=== PATIENT | male | born 1995 | race African-American/Black ===

== ENCOUNTER 2023-03-04 10:27 | Emergency (ER) | payer OTHER ==
[~2023-03-04] VITALS: Ht 177.8 cm; Wt 66.8 kg
[2023-03-04] MEDS ORDERED: IBUP200C25 PO (10:47)
[2023-03-04 14:18] LABS: HEMATOCRIT 49.2 % (42.0-52.0); HEMOGLOBIN 16.4 g/dl (13.5-17.5); MEAN CORPUSCULAR HEMOGLOBIN 31.1 pg (27.0-33.0); MEAN CORPUSCULAR HGB CONC 33.3 g/dl (32.0-36.5); MEAN CORPUSCULAR VOLUME 93.4 fl (80.0-96.0); PLATELET COUNT, AUTOMATED 211 10^3/uL (150-450); RED BLOOD COUNT 5.27 10^6/uL (4.30-6.10); WHITE BLOOD COUNT 4.5 10^3/uL (4.0-10.0)
[2023-03-04 14:42] VITALS: BP 122/63
[2023-03-04 15:44] LABS: GC DNA AMPLIFICATION NEGATIVE (NEGATIVE)
== END 2023-03-04 15:58 | disposition home or self-care (01) ==
LOC: M ED 10:27
DX: R10.30 Lower abdominal pain, unspecified (principal); F17.200 Nicotine dependence, unspecified, uncomplicated

== ENCOUNTER 2023-05-03 22:40 | Inpatient (IN) | payer OTHER ==
[~2023-05-03 22:40] MED LIST: IBUP200C25 PO
[2023-05-03 23:15] LABS: HEMATOCRIT 43.9 % (42.0-52.0); HEMOGLOBIN 14.6 g/dl (13.5-17.5); MEAN CORPUSCULAR HEMOGLOBIN 30.7 pg (27.0-33.0); MEAN CORPUSCULAR HGB CONC 33.3 g/dl (32.0-36.5); MEAN CORPUSCULAR VOLUME 92.4 fl (80.0-96.0); RED BLOOD COUNT 4.75 10^6/uL (4.30-6.10); WHITE BLOOD COUNT 4.4 10^3/uL (4.0-10.0)
[2023-05-03 23:16] LABS: BASO % 0.5 % (0.0-1.0); EOS # 0.1 10^3/uL (0.0-0.5); EOS % 1.8 % (0.0-3.0); LYMPH # 1.9 10^3/uL (1.5-5.0); LYMPH % 42.9 % (24.0-44.0); MONO # 0.3 10^3/uL (0.0-0.8); MONO % 6.5 % (2.0-8.0); NEUTROPHILS # 2.1 10^3/uL (1.5-8.5); NEUTROPHILS % 48.3 % (36.0-66.0); PLATELET COUNT, AUTOMATED 221 10^3/uL (150-450)
[2023-05-03 23:39] LABS: ETHYL ALCOHOL (ETHANOL) < 0.003 % (0.000-0.010)
[2023-05-03 23:40] LABS: ACETAMINOPHEN LEVEL < 2.0 UG/ML (10.0-20.0); SALICYLATE LEVEL < 3.0 MG/DL (<30)
[2023-05-03 23:43] LABS: THYROID STIMULATING HORMONE 1.419 uIU/ML (0.55-4.78)
[2023-05-03 23:47] LABS: ALBUMIN 3.6 G/DL (3.2-5.2); ALKALINE PHOSPHATASE 47 U/L (46-116); ALT/SGPT 20 U/L (7.0-40); AST/SGOT 39 U/L (<34); BILIRUBIN,DIRECT 0.2 MG/DL (<0.4); BILIRUBIN,TOTAL 0.7 MG/DL (0.3-1.2); BLOOD UREA NITROGEN 13 MG/DL (9-23); CALCIUM LEVEL 7.8 MG/DL (8.5-10.1); CARBON DIOXIDE LEVEL 29 MMOL/L (20-31); CHLORIDE LEVEL 99 MMOL/L (98-107); CREATININE FOR GFR 0.98 MG/DL (0.70-1.30); GLOMERULAR FILTRATION RATE > 60.0 (>60); GLUCOSE, FASTING 334 MG/DL (60-100); POTASSIUM SERUM 4.8 MMOL/L (3.5-5.1); SODIUM LEVEL 134 MMOL/L (136-145)
[2023-05-04 00:01] LABS: AMPHETAMINES LEVEL URINE NEGATIVE (NEGATIVE); BARBITURATES URINE NEGATIVE (NEGATIVE); BENZODIAZEPINES URINE NEGATIVE (NEGATIVE); COCAINE METABOLITE URINE NEGATIVE (NEGATIVE); METHADONE URINE NEGATIVE (NEGATIVE); OPIATES URINE NEGATIVE (NEGATIVE)
[2023-05-04 00:02] LABS: PHENCYCLIDINE URINE NEGATIVE (NEGATIVE)
[2023-05-04 00:04] LABS: CANNABINOIDS URINE POSITIVE (NEGATIVE)
[2023-05-04 01:35] LABS: RSV AMPLIFICATION NEGATIVE (NEGATIVE)
[2023-05-04] MEDS ORDERED: ACETAMINOPHEN TAB 650MG DOSE (2X325MG) PO PRN (02:50)
[2023-05-04] MEDS ORDERED: LR 1,000 ML IV SCH (03:00)
[2023-05-04] MEDS ORDERED: HOME MED LIST COMPLETE! XX SCH (07:35)
[2023-05-04] MEDS: ENOXAPARIN 40MG/0.4ML SYRINGE (J1650 PER 10MG) SC SCH (09:00)
[2023-05-04] MEDS ORDERED: PROHANCE 279.3MG/ML 15ML VIAL As Ordered ONE (13:55)
[2023-05-04 13:58] LABS: ALBUMIN 3.7 G/DL (3.2-5.2); ALKALINE PHOSPHATASE 65 U/L (46-116); ALT/SGPT 16 U/L (7.0-40); AST/SGOT 13 U/L (<34); BILIRUBIN,TOTAL 0.9 MG/DL (0.3-1.2); BLOOD UREA NITROGEN 14 MG/DL (9-23); C REACTIVE PROTEIN QUANTITATIV < 0.40 MG/DL (<1.0); CALCIUM LEVEL 9.3 MG/DL (8.5-10.1); CARBON DIOXIDE LEVEL 28 MMOL/L (20-31); CHLORIDE LEVEL 106 MMOL/L (98-107); CREATININE FOR GFR 0.81 MG/DL (0.70-1.30); GLOMERULAR FILTRATION RATE > 60.0 (>60); GLUCOSE, FASTING 100 MG/DL (60-100); POTASSIUM SERUM 4.1 MMOL/L (3.5-5.1); SODIUM LEVEL 140 MMOL/L (136-145); TOTAL PROTEIN 6.1 G/DL (5.7-8.2)
[2023-05-04 15:47] LABS: AMORPHOUS SEDIMENT MODERATE (NEGATIVE); APPEARANCE, URINE CLOUDY (CLEAR); BACTERIA, URINE AUTO NEGATIVE (NEGATIVE); BILIRUBIN, URINE AUTO NEGATIVE (NEGATIVE); BLOOD, URINE BLOOD 2+ (NEGATIVE); COLOR, URINE YELLOW (YELLOW); GLUCOSE, URINE (UA) AUTO NEGATIVE (NEGATIVE); KETONE, URINE AUTO NEGATIVE (NEGATIVE); LEUKOCYTE ESTERASE, URINE AUTO NEGATIVE (NEGATIVE); NITRITE, URINE AUTO NEGATIVE (NEGATIVE); PROTEIN, URINE AUTO NEGATIVE (NEGATIVE); RBC, URINE AUTO 88 /HPF (0-3); SPECIFIC GRAVITY URINE AUTO 1.014 (1.002-1.035); SQUAMOUS EPITHELIAL CELL UR AU 0 /HPF (0-6); WBC, URINE AUTO 0 /HPF (0-3)
[2023-05-04 15:50] VITALS: BP 122/69; TEMP 98.1; O2SAT 100
[2023-05-04 20:46] VITALS: BP 116/69; TEMP 97.1; O2SAT 100
[2023-05-05 06:00] VITALS: BP 118/65; TEMP 97.6; O2SAT 100
[2023-05-05 06:00] LABS: BASO % 0.6 % (0.0-1.0); EOS # 0.1 10^3/uL (0.0-0.5); EOS % 2.4 % (0.0-3.0); HEMATOCRIT 46.2 % (42.0-52.0); HEMOGLOBIN 15.4 g/dl (13.5-17.5); LYMPH # 2.2 10^3/uL (1.5-5.0); LYMPH % 41.5 % (24.0-44.0); MEAN CORPUSCULAR HEMOGLOBIN 30.7 pg (27.0-33.0); MEAN CORPUSCULAR HGB CONC 33.3 g/dl (32.0-36.5); MEAN CORPUSCULAR VOLUME 92.2 fl (80.0-96.0); MONO # 0.5 10^3/uL (0.0-0.8); MONO % 9.3 % (2.0-8.0); NEUTROPHILS # 2.5 10^3/uL (1.5-8.5); PLATELET COUNT, AUTOMATED 243 10^3/uL (150-450); RED BLOOD COUNT 5.01 10^6/uL (4.30-6.10); WHITE BLOOD COUNT 5.4 10^3/uL (4.0-10.0)
[2023-05-05 06:24] LABS: ALBUMIN 4.1 G/DL (3.2-5.2); ALKALINE PHOSPHATASE 75 U/L (46-116); ALT/SGPT 14 U/L (7.0-40); AST/SGOT 12 U/L (<34); BILIRUBIN,TOTAL 0.5 MG/DL (0.3-1.2); BLOOD UREA NITROGEN 15 MG/DL (9-23); CALCIUM LEVEL 9.7 MG/DL (8.5-10.1); CARBON DIOXIDE LEVEL 30 MMOL/L (20-31); CHLORIDE LEVEL 103 MMOL/L (98-107); CREATININE FOR GFR 0.91 MG/DL (0.70-1.30); GLOMERULAR FILTRATION RATE > 60.0 (>60); GLUCOSE, FASTING 75 MG/DL (60-100); MAGNESIUM LEVEL 1.9 MG/DL (1.8-2.4); SODIUM LEVEL 139 MMOL/L (136-145); TOTAL PROTEIN 6.6 G/DL (5.7-8.2)
[2023-05-05] MEDS: ENOXAPARIN 40MG/0.4ML SYRINGE (J1650 PER 10MG) SC SCH (08:02)
[2023-05-05] MEDS ORDERED: ONDANSETRON 4MG 2ML VIAL IV PRN (09:55)
[2023-05-05] MEDS ORDERED: BISACODYL 10MG SUPP PR PRN (09:55)
[2023-05-05] MEDS: SENOKOT S TAB PO SCH ×2 (10:09→21:00)
[2023-05-05] MEDS ORDERED: OLANZapine INTRAMUSCULAR 10MG VIAL IM PRN (12:40)
[2023-05-05] MEDS ORDERED: GLUCOSE 4GM CHEW TABLET PO PRN (13:30)
[2023-05-05] MEDS ORDERED: DEXTROSE 50% 50ML SYRINGE IV PRN (13:30)
[2023-05-05] MEDS ORDERED: GLUCAGON INJ 1MG VIAL SC PRN (13:30)
[2023-05-05 14:00] VITALS: BP 116/66; TEMP 97.4; O2SAT 100
[2023-05-05 21:44] VITALS: BP 132/65; TEMP 97.2; O2SAT 100
[2023-05-06] MEDS: ENOXAPARIN 40MG/0.4ML SYRINGE (J1650 PER 10MG) SC SCH (09:00)
[2023-05-06] MEDS: SENOKOT S TAB PO SCH (09:00)
[2023-05-06 11:06] LABS: BASO % 0.7 % (0.0-1.0); EOS % 0.9 % (0.0-3.0); HEMATOCRIT 55.3 % (42.0-52.0); LYMPH # 1.8 10^3/uL (1.5-5.0); MEAN CORPUSCULAR HEMOGLOBIN 31.2 pg (27.0-33.0); MEAN CORPUSCULAR HGB CONC 33.6 g/dl (32.0-36.5); MEAN CORPUSCULAR VOLUME 92.6 fl (80.0-96.0); MONO # 0.3 10^3/uL (0.0-0.8); MONO % 5.4 % (2.0-8.0); NEUTROPHILS # 2.5 10^3/uL (1.5-8.5); NEUTROPHILS % 53.8 % (36.0-66.0); PLATELET COUNT, AUTOMATED 256 10^3/uL (150-450); RED BLOOD COUNT 5.97 10^6/uL (4.30-6.10); WHITE BLOOD COUNT 4.6 10^3/uL (4.0-10.0)
[2023-05-06 11:11] LABS: HEMOGLOBIN 18.6 g/dl (13.5-17.5)
[2023-05-06 11:25] LABS: BLOOD UREA NITROGEN 16 MG/DL (9-23); CALCIUM LEVEL 9.6 MG/DL (8.5-10.1); CARBON DIOXIDE LEVEL 30 MMOL/L (20-31); CHLORIDE LEVEL 100 MMOL/L (98-107); CREATININE FOR GFR 0.94 MG/DL (0.70-1.30); GLOMERULAR FILTRATION RATE > 60.0 (>60); GLUCOSE, FASTING 149 MG/DL (60-100); MAGNESIUM LEVEL 1.9 MG/DL (1.8-2.4); POTASSIUM SERUM 4.6 MMOL/L (3.5-5.1); SODIUM LEVEL 138 MMOL/L (136-145)
[2023-05-06 14:00] VITALS: BP 131/90; TEMP 97.2; O2SAT 97
== END 2023-05-06 18:40 | DRG 71 ==
LOC: EDBD 22:40 → M ED 22:40 → M ED INP 05-04 02:47 → ENRESERV 05-04 13:30 → M MSPAV 05-04 15:27
PROVIDERS: ADMIT Internal Medicine; ATTEND Internal Medicine
DX: G93.41 Metabolic encephalopathy (principal); R45.851 Suicidal ideations; F32.2 Major depressive disorder, single episode, severe without psychotic features; E16.2 Hypoglycemia, unspecified; R31.1 Benign essential microscopic hematuria; D75.1 Secondary polycythemia; K59.00 Constipation, unspecified

== ENCOUNTER 2023-05-06 14:09 | Inpatient (IN) | payer OTHER ==
[~2023-05-06] VITALS: Ht 177.8 cm; Wt 59.9 kg
[2023-05-06] MEDS ORDERED: diphenhydrAMINE 25MG CAP PO PRN (16:45)
[2023-05-06] MEDS ORDERED: ACETAMINOPHEN TAB 650MG DOSE (2X325MG) PO PRN (16:45)
[2023-05-06] MEDS ORDERED: MAALOX 30 ML SUSP *UDC PO PRN (16:45)
[2023-05-06] MEDS ORDERED: IBUPROFEN 400MG TAB PO PRN (16:45)
[2023-05-06] MEDS ORDERED: MOM 30ML SUSPENSION UDC PO PRN (16:45)
[2023-05-06] MEDS ORDERED: LORazepam 1 MG TAB PO PRN (16:45)
[2023-05-06 18:56] VITALS: BP 137/80; TEMP 97.5; O2SAT 100
[2023-05-07] MEDS: SERTRALINE HCL 50 MG TAB PO SCH (09:47)
[2023-05-07 16:45] VITALS: BP 131/68; TEMP 98; O2SAT 96
[2023-05-08 06:29] VITALS: BP 125/83; TEMP 97.8; O2SAT 100
[2023-05-08] MEDS: SERTRALINE HCL 50 MG TAB PO SCH ×2 (09:00→19:22)
[2023-05-08] MEDS: busPIRone 5 MG TAB PO SCH ×2 (11:45→20:43)
[2023-05-08 18:54] VITALS: BP 132/80; TEMP 98.1
[2023-05-08] MEDS: traZODone 50 MG TAB PO PRN (20:43)
[2023-05-09 06:22] VITALS: BP 119/61; TEMP 98.2; O2SAT 100
[2023-05-09] MEDS: busPIRone 5 MG TAB PO SCH ×2 (09:15→21:54)
[2023-05-09] MEDS: SERTRALINE HCL 50 MG TAB PO SCH (19:00)
[2023-05-09 19:07] VITALS: BP 124/80; TEMP 98
[2023-05-10 06:48] VITALS: BP 142/72; TEMP 97.4; O2SAT 100
[2023-05-10] MEDS: busPIRone 5 MG TAB PO SCH ×2 (09:13→21:45)
[2023-05-10 16:59] VITALS: BP 116/58; TEMP 98.7; O2SAT 100
[2023-05-10] MEDS: traZODone 50 MG TAB PO PRN (21:44)
[2023-05-11 06:47] VITALS: BP 166/68; TEMP 98.4; O2SAT 100
[2023-05-11] MEDS: busPIRone 5 MG TAB PO SCH ×2 (09:04→21:39)
[2023-05-11 16:59] VITALS: BP 115/69; TEMP 98.9; O2SAT 100
[2023-05-12 06:39] VITALS: BP 108/67; TEMP 98.5; O2SAT 100
[2023-05-12] MEDS: busPIRone 5 MG TAB PO SCH (08:19)
[2023-05-12] MEDS: ESCITALOPRAM OXALATE 5MG TABLET (LEXAPRO) PO SCH (09:59)
[2023-05-12 18:00] VITALS: BP 148/90; TEMP 97.4
[2023-05-12] MEDS: busPIRone 10 MG TAB PO SCH (20:07)
[2023-05-13 06:30] VITALS: BP 119/59; TEMP 97.8; O2SAT 100
[2023-05-13] MEDS: busPIRone 10 MG TAB PO SCH (07:51)
[2023-05-13] MEDS: ESCITALOPRAM OXALATE 5MG TABLET (LEXAPRO) PO SCH (07:51)
[2023-05-13] MEDS ORDERED: BUSP10TA PO (09:08)
[2023-05-13] MEDS ORDERED: TRAZ-252 PO (09:08)
[2023-05-13] MEDS ORDERED: LEXA5TAB13 PO (09:08)
== END 2023-05-13 12:27 | disposition home or self-care (01) | DRG 885 ==
LOC: M PSY 17:15
PROVIDERS: ADMIT Psychiatry & Neurology Psychiatry; ATTEND Student in an Organized Health Care Education/Training Program
DX: F33.9 Major depressive disorder, recurrent, unspecified (principal); G93.41 Metabolic encephalopathy; R45.851 Suicidal ideations; F12.10 Cannabis abuse, uncomplicated; F17.200 Nicotine dependence, unspecified, uncomplicated; E16.2 Hypoglycemia, unspecified; D75.1 Secondary polycythemia; Z63.4 Disappearance and death of family member

== ENCOUNTER 2023-05-20 20:47 | Emergency (ER) | payer OTHER ==
[~2023-05-20] VITALS: Ht 177.8 cm; Wt 60.0 kg
[~2023-05-20 20:47] MED LIST changes: +BUSP10TA PO; +LEXA5TAB13 PO; +TRAZ-252 PO
[2023-05-20 23:03] LABS: HEMATOCRIT 48.3 % (42.0-52.0); HEMOGLOBIN 16.1 g/dl (13.5-17.5); MEAN CORPUSCULAR HEMOGLOBIN 30.5 pg (27.0-33.0); MEAN CORPUSCULAR HGB CONC 33.3 g/dl (32.0-36.5); MEAN CORPUSCULAR VOLUME 91.5 fl (80.0-96.0); PLATELET COUNT, AUTOMATED 231 10^3/uL (150-450); RED BLOOD COUNT 5.28 10^6/uL (4.30-6.10); WHITE BLOOD COUNT 7.3 10^3/uL (4.0-10.0)
[2023-05-20 23:13] LABS: ETHYL ALCOHOL (ETHANOL) < 0.003 % (0.000-0.010)
[2023-05-20 23:14] LABS: ACETAMINOPHEN LEVEL < 2.0 UG/ML (10.0-20.0); SALICYLATE LEVEL < 3.0 MG/DL (<30)
[2023-05-20 23:15] LABS: ALBUMIN 4.3 G/DL (3.2-5.2); ALKALINE PHOSPHATASE 93 U/L (46-116); ALT/SGPT < 9 U/L (7.0-40); AST/SGOT < 8 U/L (<34); BILIRUBIN,DIRECT < 0.1 MG/DL (<0.4); BILIRUBIN,TOTAL 0.4 MG/DL (0.3-1.2); BLOOD UREA NITROGEN 14 MG/DL (9-23); CALCIUM LEVEL 9.1 MG/DL (8.5-10.1); CARBON DIOXIDE LEVEL 29 MMOL/L (20-31); CHLORIDE LEVEL 107 MMOL/L (98-107); CREATININE FOR GFR 0.91 MG/DL (0.70-1.30); GLOMERULAR FILTRATION RATE > 60.0 (>60); GLUCOSE, FASTING 83 MG/DL (60-100); POTASSIUM SERUM 4.8 MMOL/L (3.5-5.1); SODIUM LEVEL 142 MMOL/L (136-145); TOTAL PROTEIN 7.1 G/DL (5.7-8.2)
[2023-05-20 23:17] LABS: THYROID STIMULATING HORMONE 1.975 uIU/ML (0.55-4.78)
[2023-05-21 00:55] LABS: AMPHETAMINES LEVEL URINE NEGATIVE (NEGATIVE)
[2023-05-21 00:56] LABS: BARBITURATES URINE NEGATIVE (NEGATIVE); BENZODIAZEPINES URINE NEGATIVE (NEGATIVE); CANNABINOIDS URINE NEGATIVE (NEGATIVE); COCAINE METABOLITE URINE NEGATIVE (NEGATIVE); METHADONE URINE NEGATIVE (NEGATIVE); OPIATES URINE NEGATIVE (NEGATIVE)
[2023-05-21 01:09] VITALS: BP 100/60; TEMP 98.7; O2SAT 100
[2023-05-21 01:15] LABS: PHENCYCLIDINE URINE NEGATIVE (NEGATIVE)
[2023-05-28] MEDS ORDERED: TRAZ-186 PO (22:50)
[2023-05-28] MEDS ORDERED: BUSP10TA PO (22:50)
[2023-05-28] MEDS ORDERED: LEXA5TAB13 PO (22:50)
== END 2023-05-21 01:41 | disposition home or self-care (01) ==
LOC: M ED 20:47
DX: F60.0 Paranoid personality disorder (principal); F43.9 Reaction to severe stress, unspecified; F32.A Depression, unspecified; F41.9 Anxiety disorder, unspecified; F17.200 Nicotine dependence, unspecified, uncomplicated; Z79.899 Other long term (current) drug therapy

== ENCOUNTER 2023-07-17 12:14 | Emergency (ER) | payer OTHER ==
[~2023-07-17] VITALS: Ht 177.8 cm; Wt 59.6 kg
[~2023-07-17 12:14] MED LIST changes: +TRAZ-186 PO
[2023-07-17] MEDS ORDERED: LORazepam 2 MG/ML 1ML VIAL IM STA (12:28)
[2023-07-17] MEDS ORDERED: HALOPERIDOL 5MG/ML 1ML VIAL IM STA (12:28)
[2023-07-17] MEDS ORDERED: HALOPERIDOL 5MG/ML 1ML VIAL As Ordered ONE (12:30)
[2023-07-17] MEDS ORDERED: LORazepam 2 MG/ML 1ML VIAL As Ordered ONE (12:31)
[2023-07-17 12:48] LABS: HEMATOCRIT 45.4 % (42.0-52.0); HEMOGLOBIN 15.3 g/dl (13.5-17.5); MEAN CORPUSCULAR HEMOGLOBIN 30.2 pg (27.0-33.0); MEAN CORPUSCULAR HGB CONC 33.7 g/dl (32.0-36.5); MEAN CORPUSCULAR VOLUME 89.5 fl (80.0-96.0); PLATELET COUNT, AUTOMATED 191 10^3/uL (150-450); RED BLOOD COUNT 5.07 10^6/uL (4.30-6.10)
[2023-07-17 12:52] VITALS: TEMP 98.6
[2023-07-17 13:11] LABS: ETHYL ALCOHOL (ETHANOL) 0.003 % (0.000-0.010)
[2023-07-17 13:12] LABS: ACETAMINOPHEN LEVEL < 2.0 UG/ML (10.0-20.0); ALBUMIN 4.3 G/DL (3.2-5.2); ALKALINE PHOSPHATASE 63 U/L (46-116); ALT/SGPT 10 U/L (7.0-40); AST/SGOT 13 U/L (<34); BILIRUBIN,DIRECT 0.3 MG/DL (<0.4); BILIRUBIN,TOTAL 0.9 MG/DL (0.3-1.2); BLOOD UREA NITROGEN 16 MG/DL (9-23); CALCIUM LEVEL 9.3 MG/DL (8.5-10.1); CARBON DIOXIDE LEVEL 25 MMOL/L (20-31); CHLORIDE LEVEL 108 MMOL/L (98-107); CREATININE FOR GFR 0.91 MG/DL (0.70-1.30); GLOMERULAR FILTRATION RATE > 60.0 (>60); GLUCOSE, FASTING 141 MG/DL (60-100); POTASSIUM SERUM 4.4 MMOL/L (3.5-5.1); SALICYLATE LEVEL < 3.0 MG/DL (<30); SODIUM LEVEL 143 MMOL/L (136-145); TOTAL PROTEIN 7.1 G/DL (5.7-8.2)
[2023-07-17] MEDS ORDERED: DEXTROSE 50% 50ML SYRINGE IV STA ×2 (14:43→16:20)
[2023-07-17] MEDS ORDERED: DEXTROSE 50% 50ML SYRINGE As Ordered ONE (14:44)
[2023-07-17 18:15] VITALS: BP 140/78; O2SAT 100
== END 2023-07-17 19:45 | disposition home or self-care (01) ==
LOC: M ED 13:56
DX: E16.2 Hypoglycemia, unspecified (principal); F43.9 Reaction to severe stress, unspecified; F41.9 Anxiety disorder, unspecified; F32.A Depression, unspecified; Z79.899 Other long term (current) drug therapy
CPT/HCPCS: 80048; 80076; 80143; 82077; 84134; 84443; 85027; 87635; 93005; 93041; 94760; 96372; 96374; 96376; 99285; J1630; J2060

== ENCOUNTER 2023-12-19 15:12 | Inpatient (IN) | payer OTHER ==
[~2023-12-19] VITALS: Ht 175.3 cm; Wt 75.0 kg
[2023-12-19] MEDS ORDERED: MED REC IN PROGRESS XX SCH (15:30)
[2023-12-19 16:09] LABS: HEMOGLOBIN 17.1 g/dl (13.5-17.5); MEAN CORPUSCULAR HEMOGLOBIN 30.8 pg (27.0-33.0); MEAN CORPUSCULAR HGB CONC 33.5 g/dl (32.0-36.5); MEAN CORPUSCULAR VOLUME 91.9 fl (80.0-96.0); PLATELET COUNT, AUTOMATED 222 10^3/uL (150-450); RED BLOOD COUNT 5.55 10^6/uL (4.30-6.10); WHITE BLOOD COUNT 4.2 10^3/uL (4.0-10.0)
[2023-12-19 16:34] LABS: ETHYL ALCOHOL (ETHANOL) 0.004 % (0.000-0.010)
[2023-12-19 16:35] LABS: SALICYLATE LEVEL < 3.0 MG/DL (<30)
[2023-12-19 16:36] LABS: ALKALINE PHOSPHATASE 94 U/L (46-116); ALT/SGPT 30 U/L (7.0-40); AST/SGOT 17 U/L (<34); BILIRUBIN,DIRECT < 0.1 MG/DL (<0.4); BILIRUBIN,TOTAL 0.3 MG/DL (0.3-1.2); BLOOD UREA NITROGEN 12 MG/DL (9-23); CALCIUM LEVEL 9.2 MG/DL (8.5-10.1); CARBON DIOXIDE LEVEL 30 MMOL/L (20-31); CHLORIDE LEVEL 104 MMOL/L (98-107); CREATININE FOR GFR 0.84 MG/DL (0.70-1.30); GLOMERULAR FILTRATION RATE > 60.0 (>60); GLUCOSE, FASTING 94 MG/DL (60-100); POTASSIUM SERUM 3.9 MMOL/L (3.5-5.1); SODIUM LEVEL 140 MMOL/L (136-145); TOTAL PROTEIN 7.5 G/DL (5.7-8.2)
[2023-12-19 16:38] LABS: THYROID STIMULATING HORMONE 2.542 uIU/ML (0.55-4.78)
[2023-12-19] MEDS ORDERED: HOME MED LIST COMPLETE! XX SCH (17:00)
[2023-12-19 18:32] LABS: AMPHETAMINES LEVEL URINE NEGATIVE (NEGATIVE)
[2023-12-19 18:33] LABS: BARBITURATES URINE NEGATIVE (NEGATIVE); BENZODIAZEPINES URINE NEGATIVE (NEGATIVE); CANNABINOIDS URINE NEGATIVE (NEGATIVE); COCAINE METABOLITE URINE NEGATIVE (NEGATIVE); METHADONE URINE NEGATIVE (NEGATIVE); OPIATES URINE NEGATIVE (NEGATIVE); PHENCYCLIDINE URINE NEGATIVE (NEGATIVE)
[2023-12-19] MEDS ORDERED: MOM 30ML SUSPENSION UDC PO PRN (18:55)
[2023-12-19] MEDS ORDERED: IBUPROFEN 400MG TAB PO PRN (18:55)
[2023-12-19] MEDS ORDERED: ACETAMINOPHEN TAB 650MG DOSE (2X325MG) PO PRN (18:55)
[2023-12-19] MEDS ORDERED: diphenhydrAMINE 25MG CAP PO PRN (18:55)
[2023-12-19] MEDS ORDERED: MAALOX 30 ML SUSP *UDC PO PRN (18:55)
[2023-12-19 21:07] VITALS: BP 125/82; TEMP 97.8; O2SAT 100
[2023-12-19] MEDS: traZODone 50 MG TAB PO PRN (21:18)
[2023-12-20 06:47] VITALS: BP 123/79; TEMP 98.5; O2SAT 98
[2023-12-20] MEDS ORDERED: OLANZapine ORAL DISINTEGRATING TAB 5MG PO PRN (10:30)
[2023-12-20 16:49] VITALS: BP 127/71; TEMP 97.8; O2SAT 100
[2023-12-21 06:44] VITALS: BP 131/79; TEMP 97.5; O2SAT 100
[2023-12-21 17:08] VITALS: BP 118/67; TEMP 98.4; O2SAT 100
[2023-12-22 06:57] VITALS: BP 122/69; TEMP 98.5
[2023-12-22] MEDS: PALIPERIDONE 6MG ER TAB (INVEGA) PO SCH (09:44)
[2023-12-22 18:34] VITALS: BP 115/62; TEMP 98.4; O2SAT 100
[2023-12-23 06:34] VITALS: BP 120/77; TEMP 98.2; O2SAT 100
[2023-12-23 07:12] LABS: CHOLESTEROL RISK RATIO 3.07 (<5); HDL CHOLESTEROL 53.4 MG/DL (>40); LDL CHOLESTEROL 86.4 MG/DL (<100); NON-HDL-C 110.6 MG/DL
[2023-12-23 17:19] VITALS: BP 115/62; TEMP 98; O2SAT 99
[2023-12-24 06:08] VITALS: BP 116/71; TEMP 98.5; O2SAT 97
[2023-12-24 18:23] VITALS: BP 109/56; TEMP 97.7
[2023-12-25 06:29] VITALS: BP 130/72; TEMP 97.9; O2SAT 100
[2023-12-25] MEDS ORDERED: INVE234I IM (08:10)
[2023-12-25] MEDS ORDERED: PALI1TAB3 PO (08:10)
[2023-12-25 17:33] VITALS: BP 126/64; TEMP 97.9
[2023-12-26 06:46] VITALS: BP 130/77; TEMP 98.2; O2SAT 100
[2023-12-26] MEDS ORDERED: IBUP-1114 PO (08:45)
[2023-12-26] MEDS ORDERED: BENZTROPINE 2 MG TAB PO ONE (08:45)
[2023-12-26] MEDS ORDERED: BENZ0.5T2 PO (08:51)
[2023-12-26] MEDS: BENZTROPINE 0.5 MG TAB PO ONE (09:10)
[2023-12-26] MEDS: PALIPERIDONE PAL 234MG/1.5ML INJ (INVEGA)(FREE PSY INPT ONLY) IM ONE (09:28)
[2023-12-26] MEDS ORDERED: INVE156I IM (10:31)
[2023-12-26] MEDS ORDERED: PALIPERIDONE PAL 234MG/1.5ML INJ (INVEGA)(FREE PSY INPT ONLY) IM ONE (11:00)
== END 2023-12-26 12:09 | disposition home or self-care (01) | DRG 885 ==
LOC: EDBD 15:12 → M ED 15:12 → M ED INP 18:57 → M PSY 20:27
PROVIDERS: ADMIT Student in an Organized Health Care Education/Training Program; ATTEND Student in an Organized Health Care Education/Training Program
DX: F20.9 Schizophrenia, unspecified (principal); F43.20 Adjustment disorder, unspecified; Z20.822 Contact with and (suspected) exposure to COVID-19

== ENCOUNTER → 2024-04-14 | Outpatient (CLI) | payer OTHER ==
[~2024-04-14] MED LIST changes: +BENZ0.5T2 PO; +IBUP-1114 PO; +INVE156I IM; +INVE234I IM; +PALI1TAB3 PO
== END ==
LOC: M OUTALCOH 07:49
PROVIDERS: ATTEND Psychiatry & Neurology Psychiatry
DX: F10.20 Alcohol dependence, uncomplicated (principal)

== ENCOUNTER → 2024-08-27 | Outpatient (CLI) | payer OTHER | LOC: M OUTALCOH 09:38 | PROVIDERS: ATTEND Psychiatry & Neurology Psychiatry | DX: F10.20 Alcohol dependence, uncomplicated (principal) ==

== ENCOUNTER → 2024-09-16 | Outpatient (RCR) | payer OTHER | LOC: M OUTALCOH 09-01 14:35 | PROVIDERS: ATTEND Psychiatry & Neurology Psychiatry | DX: F10.20 Alcohol dependence, uncomplicated (principal); Z72.0 Tobacco use ==

== ENCOUNTER 2024-10-07 14:24 | Outpatient (RCR) | payer OTHER | END 2024-10-16 | LOC: M OUTALCOH 14:24 | PROVIDERS: ATTEND Psychiatry & Neurology Psychiatry | DX: F10.20 Alcohol dependence, uncomplicated (principal); Z72.0 Tobacco use ==

== ENCOUNTER 2024-11-01 16:00 | Outpatient (RCR) | payer OTHER | END 2024-11-16 | LOC: M OUTALCOH 16:00 | PROVIDERS: ATTEND Psychiatry & Neurology Psychiatry | DX: F10.20 Alcohol dependence, uncomplicated (principal); Z72.0 Tobacco use ==